=== PATIENT | male | born 2000 | race Caucasian/White ===

== ENCOUNTER 2024-08-26 12:48 | Emergency (ER) | payer OTHER, SELFPAY ==
--- NOTE | ~2024-08-26 | US_ITS ---
EXAMINATION: US scrotum doppler DATE: 08/26/2024 13:28 INDICATION: Testicular pain TECHNIQUE: Testicular sonogram utilizing grayscale and Doppler COMPARISON: None. FINDINGS: The right testis measures 4.9 x 2.5 x 3.0 cm. The left testis measures 4.3 x 2.3 x 3.2 cm. Symmetric normal grayscale appearance to both testes. There is normal vascular flow to both testes. The right e pididymis is normal with normal vascular flow. The left epididymis is normal with normal vascular nissa w. There is no varicocele or hydrocele. IMPRESSION: 1. Normal scrotal ultrasound. Reviewed, dictated and finalized at location A. [employer]
--- NOTE | 2024-08-26 13:18 | ED.GENADULT ---
HPI - General Adult General Chief complaint: Urogenital-Male Stated complaint: testicular pain Time Seen by Provider: 08/26/24 13:00 History of Present Illness HPI narrative: 24 old male presenting to the emergency department for evaluation for bilateral testicular pain. Patient reports he had a retraction of his testicles yesterday states lasted approximately 5 minutes. Patient reports that the pain has worsened over the course of the last 24 hours. Patient has no prior history of testicular torsion or injury. Related Data Allergies Allergy/AdvReac Type Severity Reaction Status Date / Time No Known Allergies Allergy Verified 08/26/24 14:24 Review of Systems Review of Systems: All systems reviewed & are unremarkable except as noted in HPI and below Exam Narrative: APPEARANCE: Well appearing, no pain, no distress, well-nourished. HEAD: normocephalic, atraumatic. EYES: PERRLA/EOMI, conjunctivae clear. NOSE: Normal no drainage EARS:TMS clear with good light reflex. THROAT: Pharynx clear, no exudate. NECK: Supple. No adenopathy, no masses. RESPIRATORY: Airway patent, respirations nonlabored. Clear to auscultation bilaterally, no rales, rhonchi, wheezing. CARDIOVASCULAR: Regular rate and rhythm without murmurs rubs or gallops. ABDOMINAL: Soft, nontender, nondistended, normal bowel sounds MUSCULOSKELETAL: Moves all extremities. Strength/ROM intact, No edema, No calf tenderness. NEURO: Alert. Cranial nerves II through XII intact. Good gait. Good coordination SKIN: Warm, dry. Normal Color Genital exam: Bilateral testicular tenderness to palpation with no testicular swelling, no scrotal edema, no scrotal cellulitis, no evidence of injury, no ecchymosis Course Vital Signs Vital signs: Vital Signs Temperature 98.3 F 08/26/24 14:25 Pulse Rate 86 08/26/24 14:25 Respiratory Rate 18 08/26/24 14:25 Blood Pressure 134/88 08/26/24 14:25 Pulse Oximetry 98 08/26/24 14:25 Temperature 98.3 F 08/26/24 14:25 Pulse Rate 86 08/26/24 14:25 Respiratory Rate 18 08/26/24 14:25 Blood Pressure 134/88 08/26/24 14:25 Pulse Oximetry 98 08/26/24 14:25 Medical Decision Making [facility] Narrative Medical decision making narrative: [age] old male presenting emergency department for evaluation for bilateral testicular discomfort. Ultrasound was negative for epididymitis or torsion hydrocele or varicocele. Patient denies any concern for STI. Patient denies any bleeding or discharge. Patient denies any injury. Patient was reassured by the results of the ultrasound and was comfortable the plan for discharge and close follow-up. Differential Diagnosis Differential Diagnosis: Testicular torsion, epididymitis, testicular injury, varicocele, hydrocele Vital Signs Vital Signs: Vital Signs Temperature 98.3 F 08/26/24 14:25 Pulse Rate 86 08/26/24 14:25 Respiratory Rate 18 08/26/24 14:25 Blood Pressure 134/88 08/26/24 14:25 Pulse Oximetry 98 08/26/24 14:25 Temperature 98.3 F 08/26/24 14:25 Pulse Rate 86 08/26/24 14:25 Respiratory Rate 18 08/26/24 14:25 Blood Pressure 134/88 08/26/24 14:25 Pulse Oximetry 98 08/26/24 14:25 Imaging Data Radiologist's impression: Impressions Scrotum Ultrasound 08/26/24 13:28 IMPRESSION: 1. Normal scrotal ultrasound. Discharge Plan Discharge Clinical Impression: Pain in both testicles Patient Disposition: Home, Self-Care Condition: Stable Instructions: Antibiotic Form, Testicle Pain (ED) Additional Instructions: Ibuprofen for pain control. [place] as needed for additional. Have close follow-up with your primary care physician and with Urology. If you have any worsening symptoms and please call or return to the emergency department. Patient Language: Iranian Prescriptions: New hydrocodone-acetaminophen 5-325 mg tablet 1 tablet PO Q12H PRN (Reason: pain) Qty: 14 0RF Follow-up/Referrals: PHYSICIAN NOT ON STAFF,NONSTAFF [Non-Staff] -
[2024-08-26 14:25] VITALS: BP 134/88; PULSE 86; RESP 18; TEMP 36.8; O2SAT 98
[2024-08-26] MEDS: HYDROcodone/acetaminophen (*CRX) 5-325 MG TABLET 1 TAB PO (14:31)
== END 2024-08-26 14:36 | disposition home or self-care (01) ==
LOC: ANHED 14:19
PROVIDERS: Emergency Provider Emergency Medicine
DX: N50.812 Left testicular pain (principal); N50.811 Right testicular pain
CPT/HCPCS: 76870; 93976; 99284; A9270

== ENCOUNTER 2025-01-05 12:26 | Emergency (ER) | payer OTHER, SELFPAY ==
[2025-01-05 12:56] VITALS: BP 143/82; PULSE 77; RESP 18; TEMP 36.2; O2SAT 100
--- NOTE | 2025-01-05 14:37 | ED.GENADULT ---
HPI - General Adult General Chief complaint: Unspecified Stated complaint: Swollen lymph node, scratchy throat, fever Time Seen by Provider: 01/05/25 14:22 History of Present Illness HPI narrative: Patient 24-year-old gentleman presents emergency department with chief complaint sore throat body aches and generalized malaise for the last several days. Patient reports that he called in work and his employer reported that he needed to have a return to work note patient states that he did a home COVID test was negative reports yesterday feel little bit better also reports that he had some ulcerations that appear to his mouth during the episode the patient denies runny nose denies cough Related Data Allergies Allergy/AdvReac Type Severity Reaction Status Date / Time No Known Allergies Allergy Verified 01/05/25 12:28 Review of Systems Review of Systems: A 10 system review of systems was completed on the patient and is negative except for what is stated in the HPI. Nursing and ancillary documentation was reviewed. Exam Narrative: GENERAL: Well-appearing, well-nourished, and in no acute distress. HEAD: Normocephalic, atraumatic. EYES: PERRLA and EOMI. ENT: Nares clear, no rhinorrhea or epistaxis. Mucous membranes moist. There are several small ulcerations in the mouth NECK: Supple. CHEST: Clear to auscultation. No respiratory distress. HEART: Regular rate and rhythm. No murmur heard. Normal peripheral pulses. ABDOMEN: Soft, nontender, nondistended, normal active bowel sounds. EXTREMITIES: Normal range of motion. No edema. SKIN: Warm, dry, no rash. NEURO: No focal deficits. Alert and oriented x3. PSYCH: Normal mood and affect. Course Vital Signs Vital signs: Vital Signs Temperature 36.2 C L 01/05/25 12:56 Pulse Rate 77 01/05/25 12:56 Respiratory Rate 18 01/05/25 12:56 Blood Pressure 143/82 H 01/05/25 12:56 Pulse Oximetry 100 01/05/25 12:56 Oxygen Delivery Room Air 01/05/25 12:56 Temperature 36.2 C L 01/05/25 12:56 Pulse Rate 68 01/05/25 15:22 Respiratory Rate 16 01/05/25 15:22 Blood Pressure 131/86 01/05/25 15:22 Pulse Oximetry 99 01/05/25 15:22 Oxygen Delivery Room Air 01/05/25 12:56 Medical Decision Making [facility] Narrative Medical decision making narrative: Differential diagnosis includes upper respiratory infection, viral illness, strep, COVID, flu, RSV The patient is nontoxic appearing and COVID flu and RSV were negative strep was negative. Given the patient does have the lesions in his mouth this is most likely a viral respiratory infection Vital Signs Vital Signs: Vital Signs Temperature 36.2 C L 01/05/25 12:56 Pulse Rate 77 01/05/25 12:56 Respiratory Rate 18 01/05/25 12:56 Blood Pressure 143/82 H 01/05/25 12:56 Pulse Oximetry 100 01/05/25 12:56 Oxygen Delivery Room Air 01/05/25 12:56 Temperature 36.2 C L 01/05/25 12:56 Pulse Rate 68 01/05/25 15:22 Respiratory Rate 16 01/05/25 15:22 Blood Pressure 131/86 01/05/25 15:22 Pulse Oximetry 99 01/05/25 15:22 Oxygen Delivery Room Air 01/05/25 12:56 Lab Data Labs: Lab Results 01/05/25 Range/Units 14:33 Influenza A (RT-PCR) Negative (Negative) Influenza B (RT-PCR) Negative (Negative) RSV (RT-PCR) Negative (Negative) SARS-CoV-2 RNA (RT-PCR) Negative (Negative) Group A Strep (PCR) Not detected (Negative) Discharge Plan Discharge Clinical Impression: Upper respiratory infection, Acute viral syndrome Patient Disposition: Home Condition: Stable Instructions: Antibiotic Form, Upper Respiratory Infection (ED), Viral Syndrome (ED) Additional Instructions: You were seen for a viral upper respiratory infection. Please stay well hydrated you may take Tylenol or ibuprofen for the body aches. Patient Language: Uzbek Prescriptions: No Action hydrocodone-acetaminophen 5-325 mg tablet 1 tablet PO Q12H PRN (Reason: pain) Qty: 14 0RF Follow-up/Referrals: [facility] [Primary Care Provider] - Stand Alone Forms: Work/School Release IP Time of Disposition: 15:35
[2025-01-05 15:02] LABS: Strep Group A RT-PCR NOT DETECTED (Negative)
[2025-01-05 15:14] LABS: Influenza A QL RT-PCR Negative (Negative); Influenza B QL RT-PCR Negative (Negative); RSV RNA, RT-PCR Negative (Negative); SARS-CoV-2 RNA PCR Negative (Negative)
[2025-01-05 15:22] VITALS: BP 131/86; PULSE 68; RESP 16; O2SAT 99
== END 2025-01-05 15:48 | disposition home or self-care (01) ==
PROVIDERS: Emergency Provider Emergency Medicine
DX: J06.9 Acute upper respiratory infection, unspecified (principal); B34.9 Viral infection, unspecified; Z20.822 Contact with and (suspected) exposure to COVID-19
CPT/HCPCS: 87637; 87651; 99283